=== PATIENT | female | born 1955 | race Caucasian/White ===

== ENCOUNTER 2019-01-28 06:35 | Day surgery (SDC) | payer MEDICAID ==
[~2019-01-28] VITALS: Ht 160 cm; Wt 61.2 kg
[~2019-01-28 06:35] MED LIST: NORVASC10 MG PO; PEPCID AC20 MG; ULTRAM50 MG
[2019-01-28 07:08] LABS: HEMATOCRIT 42.7 % (36.0-48.0); HEMOGLOBIN 13.9 g/dL (12-16); MCH 30.3 pg (26.0-34.0); MCHC 32.6 g/dL (31.0-37.0); MEAN PLATELET VOLUME 10.5 fL (7.4-10.4); RBC 4.59 10x6/uL (4.00-5.40); RDW 15.3 % (11.5-14.5); WBC 6.5 10x3/uL (4.8-10.8)
[2019-01-28 08:17] VITALS: BP 109/59; Ht 160 cm; Wt 61.2 kg
--- NOTE | 2019-01-28 12:40 | NUR ---
1225 MEDICATED FOR PAIN 12/25 1230 RESP HERE TO GIVEN [place]. 1240 MEDICATED FOR MILD NAUSEA.
--- NOTE | 2019-01-28 14:51 | OP ---
PATIENT NAME: TRAMAINE MAJOR MEDICAL RECORD: [id number] :57 LOCATION:[facility] ADMISSION DATE: SURGEON: REGINALDO SCOTT MD DATE OF OPERATION: 01/28/2019 PREOPERATIVE DIAGNOSIS: Symptomatic left inguinal hernia. POSTOPERATIVE DIAGNOSIS: Symptomatic pantaloon left inguinal hernia (non-incarcerated indirect component and incarcerated direct component). PROCEDURES: Open left inguinal hernia repair with bilayered preperitoneal polypropylene mesh. SURGEON: Reginaldo Scott MD NEEDLE GRADER: None. BLOOD LOSS: Minimal. ANESTHESIA: General. COMPLICATIONS: None. The risks, possible complications and alternatives to the procedure were explained to the patient. She elects to proceed. The discussion specifically included, but was not limited to, bleeding requiring emergency reoperation, infection, intestinal injury, and reherniation. OPERATIVE COURSE: The patient was conveyed to the operating room electively on 01/28/2019. General anesthesia was induced by the anesthesia staff. The abdomen and genitals were sterilely prepped and draped. A transverse incision was accomplished in the left lower quadrant. Sharp dissection was carried down through skin and subcutaneous tissue as well as Alexnader fascia. External oblique aponeurosis was opened along the direction of its fibers. I bluntly dissected down through the internal oblique and transversus abdominis muscles. A preperitoneal pocket was fashioned bluntly. An incarcerated direct component was reduced in its entirety. There was a non-incarcerated indirect component. This was reduced. The round ligament was ligated doubly and divided between ligatures. I then cut 2 ovals out of a polypropylene mesh. The 2 ovals were sutured one on top of the other with #1 Surgidac. I allowed the muscular layers to fall together over the mesh. The internal oblique and transversus abdominis muscles were then approximated with multiple interrupted horizontal mattress 0 Surgidacs incorporating a portion of the underlying mesh. The external oblique aponeurosis was closed with running #1 Vicryls. Alexander fascia was approximated with interrupted 3-0 Vicryl. The subdermis was approximated with interrupted 3-0 Vicryls. The skin was approximated with a running intracuticular 4-0 Vicryl. Benzoin and Steri-Strips were applied. The patient was then extubated and conveyed to the post-anesthesia care unit where she was in stable condition. TRANSINT:[id number] Voice Confirmation ID: [id number] DOCUMENT ID: [id number] OPERATIVE REPORT [id number] TARMAINE MAJOR, REGINALDO MEDELLIN at 1451 CC: DREA GARCIA MD [id number] DICTATION DATE: 01/28/191112 BIOTECHNOLOGIST: 01/28/19 1125 [facility] 01/28/19 [place] [id number] [place] [id number]
== END 2019-01-28 13:09 | disposition home or self-care (01) ==
LOC: D.PAN 06:35 → D.OPS 08:00 → D.PAN 09:00
PROVIDERS: Anesthesiology; ATTEND Surgery
DX: K40.30 Unilateral inguinal hernia, with obstruction, without gangrene, not specified as recurrent (principal)